=== PATIENT | male | born 1960 | race Caucasian/White ===

== ENCOUNTER 2017-02-24 09:39 | Emergency (ER) | payer OTHER ==
[2017-02-24 09:41] VITALS: BP 153/109; BMI 40.7
[2017-02-24] MEDS ORDERED: DEMEROL INJ IM ONE (09:54)
--- NOTE | 2017-02-24 09:57 | DR.GENAD ---
HPI - PCP Primary Care Physician: - Complaint/Symptoms Chief Complaint Doctors Comments: Patient states that he has tenderness in the scrotum, this is a reoccuring event. The scrotum is tender, non fluctuant. Chief Complaint:: PT. STATES HE HAS A CYST BETWEEN HIS TESTICLE AND HIS BUTT THAT APPEARED 3 DAYS AGO. - Source History Provided: Patient - Mode of Arrival Mode of Arrival: Ambulatory - Timing Onset of Chief Complaint: 02/21/17 PMH - PMH Past Medical History: Yes Past Medical History: Diabetes Past Surgical History: Yes Surgical History: Ortho Surgery - Family History History of Family Medical Conditions: Yes Family Medical History: Diabetes Mellitus, [place], Hypertension - Social History Does patient currently use any type of tobacco product: Yes Have you used tobacco products in the last 12 months: Yes Type of Tobacco Use: Cigarettes Does any household member use tobacco: Yes Alcohol Use: None Do you use any recreational Drugs:: No Lives With: Spouse Lives Where: Home - infectious screening In the last 2 months have you had wt loss of >10#?: NO Have you had fever, night sweats or hemotysis?: No Have you traveled outside the country in the last 6 months?: No Isolation: Standard ROS - Review of Systems Eyes: No Symptoms Reported ENTM: No Symptoms Reported Respiratoy: No Symptoms Reported Cardiovascular: No Symptoms Reported Gastrointestinal/Abdominal: No Symptoms Reported Genitourinary: See HPI Neurological: No Symptoms Reported Musculoskeletal: No Symptoms Reported Integumentary: See HPI, Other (scrotal pain) Hematologic/Lymphatic: No Symptoms Reported Endocrine: No Symptoms Reported Psychiatric: No Symptoms Reported All Other Systems: Reviewed and Negative PE - Vital Signs Vitals: Temperature 97.0 F Pulse Rate 125 Respiratory Rate 26 Blood Pressure 153/109 O2 Sat by Pulse Oximetry 96 - General Limitations: No Limitations General Appearance: Alert, In No Apparent Distress - Head Head Exam: Normal Inspection, Atraumatic - Eyes Eye exam: Normal Appearance, PERRL, EOMI - ENT ENT Exam: Normal Exam External Ear Exam: Normal External Inspection TM/Canal Exam: Bilateral Normal Nose Exam: Normal Nose Exam Mouth Exam: Normal Inspection Throat Exam: Normal Inspection - Neck Neck Exam: Normal Inspection, Full ROM - Chest Chest Inspection: Normal Inspection - Respiratory Respiratory Exam: Normal Lung Sounds Bilat Respiratory Exam: Bilateral Clear to Auscultation - Cardiovascular Cardiovascular Exam: Regular Rate, Normal Rhythm - Abdominal Exam Abdominal Exam: Normal Inspection Abdominal Tenderness: negative: RUQ, RLQ, LUQ, LLQ, Epigastrium, Suprapubic, Diffuse, Mild, Moderate, Severe, Other - Extremities Extremities Exam: Normal Inspection, Full ROM - Back Back Exam: Normal Inspection - Neurologic Neurological Exam: Alert, Oriented X3, CN II-XII Intact - Psychiatric Psychiatric Exam: Normal Affect - Skin Skin Exam: Warm, Dry, Intact (non flutucant right side), Erythema - Diagnosis Discharge Problem: Epididymitis - Discharge Plan Condition: Stable - Follow ups/Referrals Follow ups/Referrals: NFD,None [Primary Care Provider] - 3 days - Instructions
[2017-02-24] MEDS ORDERED: DEMEROL INJ ONE (10:03)
== END 2017-02-24 10:16 | disposition home or self-care (01) ==
LOC: ER 09:39
DX: N45.1 Epididymitis (principal)
CPT/HCPCS: 96372; 99282; J2175